=== PATIENT | male | born 1970 | race Caucasian/White ===

== ENCOUNTER 2018-02-12 19:59 | Inpatient (IN) | payer OTHER ==
[~2018-02-12] VITALS: Ht 185.4 cm; Wt 115.4 kg
[2018-02-12 22:03] LABS: BASOPHILS % (AUTO) 0.7 % (0.0-2.0); EOSINOPHILS % (AUTO) 1.7 % (1.0-6.0); HEMATOCRIT 44.9 % (41-53); HEMOGLOBIN 15.6 g/dL (13.5-17.5); LYMPHOCYTES # (AUTO) 1.6 K/uL (1.0-4.8); LYMPHOCYTES % (AUTO) 24.2 % (22.0-44.0); MEAN CORPUSCULAR HEMOGLOBIN 30.5 pg (26.0-34.0); MEAN CORPUSCULAR HGB CONC 34.8 G/dL (31.0-37.0); MEAN CORPUSCULAR VOLUME 88 fL (80-100); MONOCYTES # (AUTO) 0.5 K/uL (0.1-1.0); MONOCYTES % (AUTO) 7.3 % (2.0-9.0); NEUTROPHILS # (AUTO) 4.3 K/uL (1.8-7.7); NEUTROPHILS % (AUTO) 66.1 % (40.0-70.0); PLATELET COUNT (AUTO) 195 K/uL (150-450); RED BLOOD CELL COUNT(AUTO) 5.12 MIL/uL (4.50-5.90); RED CELL DISTRIBUTION WIDTH 13.2 % (11.5-14.5)
[2018-02-12 22:13] LABS: ANION GAP 12 mmol/L (8-16); CALCIUM, TOTAL 9.4 mg/dL (8.8-10.5); CARBON DIOXIDE 25 mmol/L (22-29); CHLORIDE 102 mmol/L (98-107); CREATININE 1.07 mg/dL (0.60-1.30); GLOMERULAR FILTR. RATE CALC > 60 mL/min (>60); GLUCOSE,RANDOM 138 mg/dL (70-110); POTASSIUM 4.6 mmol/L (3.5-5.1); SODIUM SERUM 139 mmol/L (136-145); UREA NITROGEN, BLOOD 14 mg/dL (7-18)
[2018-02-12] MEDS ORDERED: DIVA-78 PO (22:14)
[2018-02-12] MEDS ORDERED: PENT400T12 PO (22:14)
[2018-02-12] MEDS ORDERED: DIPH50 PO (22:14)
[2018-02-12] MEDS ORDERED: TRAZ-219 PO (22:14)
[2018-02-12] MEDS ORDERED: LEVO88TA4 PO (22:14)
[2018-02-12] MEDS ORDERED: INSLAN SQ (22:14)
[2018-02-12] MEDS ORDERED: OMEP20 PO (22:14)
[2018-02-12] MEDS ORDERED: METF-960 PO ×2 (22:14)
[2018-02-12] MEDS ORDERED: CETI-290 PO (22:14)
[2018-02-12] MEDS ORDERED: QUET25TA PO (22:14)
[2018-02-12] MEDS ORDERED: TEST5GEL TD (22:14)
[2018-02-12] MEDS ORDERED: TOPI100T37 PO (22:14)
[2018-02-12] MEDS ORDERED: FOLI1 PO (22:14)
[2018-02-12] MEDS ORDERED: ZINC50TA2 PO (22:14)
[2018-02-12] MEDS ORDERED: LOSA50TA64 PO (22:14)
[2018-02-12] MEDS ORDERED: ALFU10TA30 PO (22:14)
[2018-02-12] MEDS ORDERED: ATOR10TA84 PO (22:14)
[2018-02-12] MEDS ORDERED: PRAZ1 PO (22:14)
[2018-02-12] MEDS ORDERED: ASPI81 PO (22:14)
[2018-02-12] MEDS ORDERED: METO-558 PO (22:14)
[2018-02-12] MEDS ORDERED: SUMA25TA9 PO (22:14)
[2018-02-12 22:20] LABS: ALANINE AMINOTRANSFERASE 99 U/L (12-78); ALBUMIN 4.2 g/dL (3.4-5.0); ALKALINE PHOSPHATASE 73 U/L (46-116); ASPARTATE AMINOTRANSFERASE 52 U/L (15-37); BILIRUBIN,TOTAL 0.7 mg/dL (0.1-1.0); TOTAL PROTEIN, SERUM 8.5 g/dL (6.4-8.2)
[2018-02-13 00:37] LABS: AMPHET/METH SCREEN,URINE NEGATIVE (NEGATIVE); BARBITURATE SCREEN, URINE NEGATIVE (NEGATIVE); BENZODIAZEPINES SCREEN,URINE NEGATIVE (NEGATIVE); CANNABINOID SCREEN,URINE POSITIVE (NEGATIVE); COCAINE SCREEN,URINE NEGATIVE (NEGATIVE); METHADONE SCREEN, URINE NEGATIVE (NEGATIVE); OPIATE SCREEN,URINE NEGATIVE (NEGATIVE)
[2018-02-13 00:38] LABS: PHENCYCLIDINE SCREEN,URINE NEGATIVE (NEGATIVE)
[2018-02-13] MEDS ORDERED: HALOPERIDOL 5 MG TABLET PO PRN (01:00)
[2018-02-13 01:25] VITALS: BP 150/82
[2018-02-13] MEDS ORDERED: LOPERAMIDE HCL 2 MG CAPSULE PO PRN (02:15)
[2018-02-13] MEDS ORDERED: CloNIDine HCL 0.1 MG TABLET PO PRN (02:15)
[2018-02-13] MEDS ORDERED: ACETAMINOPHEN 325 MG TABLET PO PRN (02:15)
[2018-02-13] MEDS ORDERED: DOCUSATE SODIUM 100 MG CAPSULE PO PRN (02:15)
[2018-02-13] MEDS ORDERED: PETROLATUM,WHITE 71 GM JELLY TP PRN (02:15)
[2018-02-13] MEDS ORDERED: ONDANSETRON HCL 4 MG TABLET PO PRN (02:15)
[2018-02-13] MEDS ORDERED: MAGNESIUM HYDROXIDE SUSPENSION 30 ML UDCUP PO PRN (02:15)
[2018-02-13] MEDS ORDERED: GuaiFENesin/D-METHORPHAN [SUGAR-FREE] 200-20MG/10 ML SYRUP UDCUP PO PRN (02:15)
[2018-02-13] MEDS ORDERED: ALBUTEROL SULFATE HFA 90 MCG/PUFF 8 GM INHALER IH PRN (02:15)
[2018-02-13] MEDS ORDERED: MAG HYDROX/AL HYDROX/SIMETH ES 30 ML SUSPENSION UDCUP PO PRN (02:15)
[2018-02-13 03:50] VITALS: BP 156/91
[2018-02-13] MEDS: LORazepam 2 MG TABLET PO PRN (03:50)
[2018-02-13] MEDS: IBUPROFEN 400 MG TABLET PO PRN (03:50)
[2018-02-13 09:07] VITALS: BP 125/66
[2018-02-13] MEDS ORDERED: TraZODone HCL 100 MG TABLET PO PRN (15:30)
[2018-02-13] MEDS ORDERED: DEXTROSE 50%-WATER 25 GM/50 ML SYRINGE IVP PRN (15:30)
[2018-02-13] MEDS ORDERED: HydrOXYzine PAMOATE 25 MG CAPSULE PO PRN (15:30)
[2018-02-13] MEDS: METOPROLOL TARTRATE 50 MG TABLET PO SCH (16:23)
[2018-02-13 17:00] VITALS: BP 121/74
[2018-02-13 20:41] LABS: APPEARANCE,URINE CLOUDY (CLEAR); BILIRUBIN,URINE NEGATIVE (NEGATIVE); GLUCOSE, URINE (UA) NEGATIVE (NEGATIVE); KETONES,URINE 40 mg/dL (NEGATIVE); LEUKOCYTE ESTERASE ,URINE NEGATIVE (NEGATIVE); NITRATE,URINE NEGATIVE (NEGATIVE); OCCULT BLOOD,URINE MODERATE (NEGATIVE); PH,URINE 5.5 (5.0-8.0); PROTEIN,URINE NEGATIVE (NEGATIVE)
[2018-02-13 20:47] LABS: BACTERIA,URINE Few /HPF (None Seen); SQUAMOUS EPITHELIAL CELL,UR Few /LPF (None Seen); WBC,URINE 0-2 /HPF (0-5)
[2018-02-13] MEDS: PRAZOSIN HCL 5 MG CAPSULE PO SCH (21:33)
[2018-02-13] MEDS: ATORVASTATIN CALCIUM 10 MG TABLET PO SCH (21:33)
[2018-02-13] MEDS: PENTOXIFYLLINE 400 MG DR TABLET PO SCH (21:33)
[2018-02-13] MEDS: TOPIRAMATE 25 MG TABLET PO SCH (21:33)
[2018-02-13] MEDS: DIVALPROEX SODIUM 500 MG DR TABLET PO SCH (21:34)
[2018-02-13] MEDS: QUEtiapine FUMARATE 100 MG TABLET PO SCH (21:35)
[2018-02-14 02:10] VITALS: BP 100/67
[2018-02-14] MEDS: IBUPROFEN 400 MG TABLET PO PRN (02:13)
[2018-02-14 05:45] LABS: GLUCOMETER DEV NAME(LOC) 3EX.; GLUCOSE,POINT OF CARE 107 MG/DL (70-110)
[2018-02-14] MEDS: LEVOTHYROXINE SODIUM 50 MCG TABLET PO SCH (06:58)
[2018-02-14] MEDS: MetFORMIN HCL 500 MG TABLET PO SCH (07:03)
[2018-02-14] MEDS: CETIRIZINE HCL 10 MG TABLET PO SCH (08:56)
[2018-02-14] MEDS: PRAZOSIN HCL 1 MG CAPSULE PO SCH (08:56)
[2018-02-14] MEDS: METOPROLOL TARTRATE 50 MG TABLET PO SCH ×2 (08:57→16:26)
[2018-02-14] MEDS: LOSARTAN POTASSIUM 50 MG TABLET PO SCH (08:58)
[2018-02-14] MEDS: PENTOXIFYLLINE 400 MG DR TABLET PO SCH ×3 (08:58→16:26)
[2018-02-14] MEDS: ALFUZOSIN HCL 10 MG ER TABLET PO SCH (08:58)
[2018-02-14] MEDS: TOPIRAMATE 25 MG TABLET PO SCH ×2 (08:58→16:26)
[2018-02-14] MEDS: ASPIRIN 81 MG CHEWABLE TABLET PO SCH (08:59)
[2018-02-14] MEDS: QUEtiapine FUMARATE 25 MG TABLET PO SCH (08:59)
[2018-02-14 11:08] LABS: GLUCOMETER DEV NAME(LOC) 3E.I; GLUCOSE,POINT OF CARE 149 MG/DL (70-110)
[2018-02-14] MEDS: INSULIN LISPRO 100 UNITS/ML SQ PRN (11:11)
[2018-02-14 11:13] VITALS: BP 101/52
[2018-02-14 16:49] LABS: GLUCOMETER DEV NAME(LOC) 3E.I; GLUCOSE,POINT OF CARE 114 MG/DL (70-110)
[2018-02-14 17:45] VITALS: BP 121/66
[2018-02-14] MEDS: DIVALPROEX SODIUM 500 MG DR TABLET PO SCH (20:19)
[2018-02-14] MEDS: ATORVASTATIN CALCIUM 10 MG TABLET PO SCH (20:20)
[2018-02-14] MEDS: PRAZOSIN HCL 5 MG CAPSULE PO SCH (20:20)
[2018-02-14] MEDS: QUEtiapine FUMARATE 100 MG TABLET PO SCH (20:20)
[2018-02-14 22:29] LABS: GLUCOMETER DEV NAME(LOC) 3E.I; GLUCOSE,POINT OF CARE 134 MG/DL (70-110)
[2018-02-15 06:04] LABS: GLUCOMETER DEV NAME(LOC) 3EX.; GLUCOSE,POINT OF CARE 99 MG/DL (70-110)
[2018-02-15] MEDS: LEVOTHYROXINE SODIUM 50 MCG TABLET PO SCH (07:06)
[2018-02-15] MEDS: MetFORMIN HCL 500 MG TABLET PO SCH (07:07)
[2018-02-15 09:28] VITALS: BP 106/59
[2018-02-15] MEDS: QUEtiapine FUMARATE 25 MG TABLET PO SCH (10:17)
[2018-02-15] MEDS: CETIRIZINE HCL 10 MG TABLET PO SCH (10:17)
[2018-02-15] MEDS: ASPIRIN 81 MG CHEWABLE TABLET PO SCH (10:17)
[2018-02-15] MEDS: ALFUZOSIN HCL 10 MG ER TABLET PO SCH (10:17)
[2018-02-15] MEDS: TOPIRAMATE 25 MG TABLET PO SCH ×2 (10:17→18:09)
[2018-02-15] MEDS: PRAZOSIN HCL 1 MG CAPSULE PO SCH (10:17)
[2018-02-15] MEDS: LOSARTAN POTASSIUM 50 MG TABLET PO SCH (10:17)
[2018-02-15] MEDS: PENTOXIFYLLINE 400 MG DR TABLET PO SCH ×3 (10:17→18:10)
[2018-02-15] MEDS: METOPROLOL TARTRATE 50 MG TABLET PO SCH ×2 (10:18→17:00)
[2018-02-15 11:29] LABS: GLUCOMETER DEV NAME(LOC) 3E.I; GLUCOSE,POINT OF CARE 129 MG/DL (70-110)
[2018-02-15] MEDS: PANTOPRAZOLE SODIUM 40 MG DR TABLET PO SCH (12:44)
[2018-02-15 16:30] VITALS: BP 116/61
[2018-02-15 17:04] LABS: GLUCOMETER DEV NAME(LOC) 3E.I; GLUCOSE,POINT OF CARE 112 MG/DL (70-110)
[2018-02-15] MEDS: PRAZOSIN HCL 5 MG CAPSULE PO SCH (22:07)
[2018-02-15] MEDS: DIVALPROEX SODIUM 500 MG DR TABLET PO SCH (22:07)
[2018-02-15] MEDS: ATORVASTATIN CALCIUM 10 MG TABLET PO SCH (22:07)
[2018-02-15] MEDS: QUEtiapine FUMARATE 100 MG TABLET PO SCH (22:07)
[2018-02-15 22:09] LABS: GLUCOMETER DEV NAME(LOC) 3E.I; GLUCOSE,POINT OF CARE 137 MG/DL (70-110)
[2018-02-16 00:26] VITALS: BP 135/76
[2018-02-16] MEDS: LORazepam 2 MG TABLET PO PRN (00:28)
[2018-02-16] MEDS: IBUPROFEN 400 MG TABLET PO PRN ×2 (00:28→22:28)
[2018-02-16 06:05] LABS: GLUCOMETER DEV NAME(LOC) 3EX.; GLUCOSE,POINT OF CARE 96 MG/DL (70-110)
[2018-02-16] MEDS: MetFORMIN HCL 500 MG TABLET PO SCH (06:51)
[2018-02-16] MEDS: LEVOTHYROXINE SODIUM 50 MCG TABLET PO SCH (06:51)
[2018-02-16 08:48] VITALS: BP 120/69
[2018-02-16] MEDS: PRAZOSIN HCL 1 MG CAPSULE PO SCH (09:03)
[2018-02-16] MEDS: QUEtiapine FUMARATE 25 MG TABLET PO SCH (09:03)
[2018-02-16] MEDS: LOSARTAN POTASSIUM 50 MG TABLET PO SCH (09:03)
[2018-02-16] MEDS: ALFUZOSIN HCL 10 MG ER TABLET PO SCH (09:03)
[2018-02-16] MEDS: TOPIRAMATE 25 MG TABLET PO SCH ×2 (09:04→16:39)
[2018-02-16] MEDS: CETIRIZINE HCL 10 MG TABLET PO SCH (09:04)
[2018-02-16] MEDS: ASPIRIN 81 MG CHEWABLE TABLET PO SCH (09:04)
[2018-02-16] MEDS: METOPROLOL TARTRATE 50 MG TABLET PO SCH ×2 (09:05→16:39)
[2018-02-16] MEDS: PANTOPRAZOLE SODIUM 40 MG DR TABLET PO SCH (09:05)
[2018-02-16] MEDS: PENTOXIFYLLINE 400 MG DR TABLET PO SCH ×3 (09:05→16:39)
[2018-02-16 11:24] LABS: GLUCOMETER DEV NAME(LOC) 3E.I; GLUCOSE,POINT OF CARE 109 MG/DL (70-110)
[2018-02-16 17:05] VITALS: BP 109/66
[2018-02-16 17:09] LABS: GLUCOMETER DEV NAME(LOC) 3E.I; GLUCOSE,POINT OF CARE 138 MG/DL (70-110)
[2018-02-16] MEDS: ATORVASTATIN CALCIUM 10 MG TABLET PO SCH (20:34)
[2018-02-16] MEDS: PRAZOSIN HCL 5 MG CAPSULE PO SCH (20:34)
[2018-02-16] MEDS: DIVALPROEX SODIUM 500 MG DR TABLET PO SCH (20:39)
[2018-02-16] MEDS: QUEtiapine FUMARATE 100 MG TABLET PO SCH (20:39)
[2018-02-16] MEDS: INSULIN LISPRO 100 UNITS/ML SQ PRN (20:57)
[2018-02-16 21:09] LABS: GLUCOMETER DEV NAME(LOC) 3E.I; GLUCOSE,POINT OF CARE 160 MG/DL (70-110)
[2018-02-16 22:28] VITALS: BP 120/72
[2018-02-16] MEDS: ZOLPIDEM TARTRATE 10 MG TABLET PO PRN (22:28)
[2018-02-17 06:04] LABS: GLUCOMETER DEV NAME(LOC) 3EX.; GLUCOSE,POINT OF CARE 117 MG/DL (70-110)
[2018-02-17] MEDS: LEVOTHYROXINE SODIUM 50 MCG TABLET PO SCH (06:58)
[2018-02-17] MEDS: MetFORMIN HCL 500 MG TABLET PO SCH (06:59)
[2018-02-17] MEDS: PANTOPRAZOLE SODIUM 40 MG DR TABLET PO SCH (08:31)
[2018-02-17] MEDS: PRAZOSIN HCL 1 MG CAPSULE PO SCH (08:31)
[2018-02-17] MEDS: PENTOXIFYLLINE 400 MG DR TABLET PO SCH ×3 (08:31→17:48)
[2018-02-17] MEDS: ALFUZOSIN HCL 10 MG ER TABLET PO SCH (08:31)
[2018-02-17] MEDS: QUEtiapine FUMARATE 25 MG TABLET PO SCH (08:31)
[2018-02-17] MEDS: ASPIRIN 81 MG CHEWABLE TABLET PO SCH (08:31)
[2018-02-17] MEDS: CETIRIZINE HCL 10 MG TABLET PO SCH (08:32)
[2018-02-17] MEDS: LOSARTAN POTASSIUM 50 MG TABLET PO SCH (08:32)
[2018-02-17] MEDS: TOPIRAMATE 25 MG TABLET PO SCH ×2 (08:32→17:48)
[2018-02-17] MEDS: METOPROLOL TARTRATE 50 MG TABLET PO SCH ×2 (08:32→17:47)
[2018-02-17 09:42] VITALS: BP 112/67
[2018-02-17 11:29] LABS: GLUCOMETER DEV NAME(LOC) 3E.I; GLUCOSE,POINT OF CARE 152 MG/DL (70-110)
[2018-02-17 19:21] VITALS: BP 130/74
[2018-02-17 21:09] LABS: GLUCOMETER DEV NAME(LOC) 3EX.; GLUCOSE,POINT OF CARE 277 MG/DL (70-110)
[2018-02-17] MEDS: ATORVASTATIN CALCIUM 10 MG TABLET PO SCH (22:23)
[2018-02-17] MEDS: PRAZOSIN HCL 5 MG CAPSULE PO SCH (22:23)
[2018-02-17] MEDS: QUEtiapine FUMARATE 100 MG TABLET PO SCH (22:24)
[2018-02-17] MEDS: DIVALPROEX SODIUM 500 MG DR TABLET PO SCH (22:24)
[2018-02-17] MEDS: ZOLPIDEM TARTRATE 10 MG TABLET PO PRN (22:51)
[2018-02-18 05:55] LABS: GLUCOMETER DEV NAME(LOC) 3EX.; GLUCOSE,POINT OF CARE 131 MG/DL (70-110)
[2018-02-18] MEDS: LEVOTHYROXINE SODIUM 50 MCG TABLET PO SCH (07:01)
[2018-02-18] MEDS: MetFORMIN HCL 500 MG TABLET PO SCH (07:01)
[2018-02-18] MEDS: CETIRIZINE HCL 10 MG TABLET PO SCH (08:14)
[2018-02-18] MEDS: TOPIRAMATE 25 MG TABLET PO SCH (08:14)
[2018-02-18] MEDS: ALFUZOSIN HCL 10 MG ER TABLET PO SCH (08:14)
[2018-02-18] MEDS: ASPIRIN 81 MG CHEWABLE TABLET PO SCH (08:14)
[2018-02-18] MEDS: METOPROLOL TARTRATE 50 MG TABLET PO SCH (08:14)
[2018-02-18] MEDS: QUEtiapine FUMARATE 25 MG TABLET PO SCH (08:14)
[2018-02-18] MEDS: PENTOXIFYLLINE 400 MG DR TABLET PO SCH ×2 (08:14→12:28)
[2018-02-18] MEDS: LOSARTAN POTASSIUM 50 MG TABLET PO SCH (08:14)
[2018-02-18] MEDS: PRAZOSIN HCL 1 MG CAPSULE PO SCH (08:14)
[2018-02-18] MEDS: PANTOPRAZOLE SODIUM 40 MG DR TABLET PO SCH (08:15)
[2018-02-18 10:13] VITALS: BP 126/76
[2018-02-18 11:19] LABS: GLUCOMETER DEV NAME(LOC) 3E.I; GLUCOSE,POINT OF CARE 242 MG/DL (70-110)
[2018-02-18 16:00] VITALS: BP 138/78
[2018-02-18] MEDS ORDERED: PANT40TA25 PO (16:23)
[2018-02-18] MEDS ORDERED: PRAZ5 PO (16:23)
[2018-02-18] MEDS ORDERED: QUET25TA PO (16:23)
[2018-02-18] MEDS ORDERED: METO50 PO (16:23)
== END 2018-02-18 16:45 | disposition home or self-care (01) | DRG 885 ==
LOC: EMS 20:00 → 3EX 02-13 00:01
PROVIDERS: ADMIT Psychiatry & Neurology Psychiatry; ATTEND Psychiatry & Neurology Psychiatry
DX: F33.2 Major depressive disorder, recurrent severe without psychotic features (principal); R45.851 Suicidal ideations; Z88.0 Allergy status to penicillin; Z88.8 Allergy status to other drugs, medicaments and biological substances; E78.5 Hyperlipidemia, unspecified; K21.9 Gastro-esophageal reflux disease without esophagitis; J30.9 Allergic rhinitis, unspecified; E03.9 Hypothyroidism, unspecified; I10 Essential (primary) hypertension; G43.909 Migraine, unspecified, not intractable, without status migrainosus; E11.9 Type 2 diabetes mellitus without complications; F12.10 Cannabis abuse, uncomplicated; F43.12 Post-traumatic stress disorder, chronic; Z79.899 Other long term (current) drug therapy; Z91.5 Personal history of self-harm; G89.29 Other chronic pain; R74.0 Nonspecific elevation of levels of transaminase and lactic acid dehydrogenase [LDH]; Z87.820 Personal history of traumatic brain injury
CPT/HCPCS: 83036; 94660; G0378; G0480